=== PATIENT | female | born 1970 | race Caucasian/White ===

== ENCOUNTER 2017-08-20 15:57 | Emergency (ER) | payer OTHER ==
[2017-08-20 16:16] VITALS: BP 150/110
--- NOTE | 2017-08-20 18:02 | EDM.PDOC ---
ED HPI GENERAL MEDICAL PROBLEM - General Chief Complaint: Lower Extremity Injury/Pain Stated Complaint: RIGHT ANKLE INJURY Time Seen by Provider: 08/20/17 16:48 Source of Information: Reports: Patient History Limitations: Reports: No Limitations - History of Present Illness INITIAL COMMENTS - FREE TEXT/NARRATIVE: This lady slipped on the ice a short while ago and felt a loud pop in her right ankle. She is unable to bear any weight but her daughter had a Cam Walker type boot and she she put that on this for protection - Related Data Allergies Allergy/AdvReac Type Severity Reaction Status Date / Time amoxicillin Allergy Rash Verified 08/20/17 16:16 erythromycin base Allergy Rash Verified 08/20/17 16:16 Penicillins Allergy Difficulty Verified 08/20/17 16:16 Breathing Sulfa (Sulfonamide Allergy Rash Verified 08/20/17 16:16 Antibiotics) Home Meds: Home Meds Hydrochlorothiazide 25 mg PO DAILY 01/28/16 [History] amLODIPine [Norvasc] 5 mg PO DAILY 11/09/16 [History] Past Medical History HEENT History: Reports: Allergic Rhinitis, Impaired Vision, Otitis Media Cardiovascular History: Reports: Hypertension Respiratory History: Reports: Bronchitis, Recurrent Gastrointestinal History: Reports: Gastritis, GERD 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: Polycystic Ovaries, , Spontaneous Musculoskeletal History: Reports: None Psychiatric History: Reports: Anxiety Endocrine/Metabolic History: Reports: Obesity/BMI 30+ Dermatologic History: Reports: Other (See Below) Other Dermatologic History: rash-chronic - Infectious Disease History Infectious Disease History: Reports: Chicken Pox, Mononucleosis - Past Surgical History Head Surgeries/Procedures: Reports: None HEENT Surgical History: Reports: Myringotomy w Tube(s), Oral Surgery Cardiovascular Surgical History: Reports: None GI Surgical History: Reports: None, EGD Female Surgical History: Reports: Cervical Cryotherapy, Tubal Ligation Endocrine Surgical History: Reports: None Musculoskeletal Surgical History: Reports: None Dermatological Surgical History: Reports: Other (See Below) Social & Family History - Family History Family Medical History: Noncontributory - Tobacco Use Smoking Status *Q: Never Smoker Second Hand Smoke Exposure: No - Recreational Drug Use Recreational Drug Use: No Review of Systems - Review of Systems Review Of Systems: ROS reveals no pertinent complaints other than HPI. ED EXAM, GENERAL - Physical Exam Exam: See Below Exam Limited By: No Limitations General Appearance: Alert, WD/WN, No Apparent Distress (This lady looks comfortable doesn't seem to be in much pain) Peripheral Pulses: 2+: Posterior Tibial (R), Dorsalis Pedis (R) Extremities: Other (There seems to be some mild tenderness to the medial malleolus and some tenderness just proximal to the lateral malleolus. There may be some mild swelling over the ankle line. Neurovascular tendon all intact.) Course - Vital Signs Last Recorded V/S: Last Vital Signs Temp 36.8 C 08/20/17 16:14 Pulse 101 H 08/20/17 16:14 Resp 16 08/20/17 16:14 BP 150/110 H 08/20/17 16:14 Pulse Ox 97 08/20/17 16:14 - Orders/Labs/Meds Orders: Active Orders 24 hr Category Date Time Status Ankle Min 3V Rt [CR] Stat Exams 08/20/17 16:55 Taken - Radiology Interpretation Free Text/Narrative:: X-ray shows what appears to be a trimalleolar fracture of the right ankle. - Re-Assessments/Exams Free Text/Narrative Re-Assessment/Exam: 08/20/17 17:59 This lady is already wearing a walking boot which I think fits her well and will give adequate immobilization as long she is nonweightbearing. She is being fitted with crutches presently 12 she has some leftover Dilaudid at home which she will take she'll follow-up with Dr. lA in a couple of days. Departure - Departure Time of Disposition: 18:01 Disposition: Home, Self-Care 01 Condition: Fair Clinical Impression: Trimalleolar fracture of ankle, closed - Discharge Information Referrals: PCP,None [Primary Care Provider] - Additional Instructions: Keep your ankle and foot elevated as much as you can. Wear the boot for protection but you should not attempt to bear any weight. Use crutches instead. You should see Dr. Al the orthopedic surgeon early this coming week.. Use your own Dilaudid as needed and remember this causes sedation. - My Orders Last 24 Hours: My Active Orders 08/20/17 16:55 Ankle Min 3V Rt [CR] Stat - Assessment/Plan Last 24 Hours: My Active Orders 08/20/17 16:55 Ankle Min 3V Rt [CR] Stat
--- NOTE | 2017-08-21 10:46 | CR ---
Ankle Min 3V Rt INDICATION: trauma COMPARISON: None FINDINGS: 3 views. Fracture distal fibula with mild lateral angulation of the distal fracture frag ment. Mildly displaced medial malleolar fracture. Mortise disruption.
== END 2017-08-20 18:41 | disposition home or self-care (01) ==
LOC: JP.ED 15:57
DX: S82.851A Displaced trimalleolar fracture of right lower leg, initial encounter for closed fracture (principal); I10 Essential (primary) hypertension; K21.9 Gastro-esophageal reflux disease without esophagitis; W00.0XXA Fall on same level due to ice and snow, initial encounter; Z88.0 Allergy status to penicillin; Z88.1 Allergy status to other antibiotic agents; Z88.2 Allergy status to sulfonamides; Z79.899 Other long term (current) drug therapy
CPT/HCPCS: 73610-26-RT; 73610-RT; 99284

== ENCOUNTER 2017-08-30 09:05 | Day surgery (SDC) | payer OTHER ==
[~2017-08-30 09:05] MED LIST: Acetaminophen 500 MG Tab PO ONE; Bupivacaine 0.5% 30 ML SDV ONE; Gabapentin 300 MG Cap PO ONE; Gentamicin 40 MG/ML 2 ML Vial ONE; Ketamine 500 MG/5 ML MDV IV SCH; Lactated Ringers 1,000 ML IV SCH; Povidone-Iodine 10% Soln 118.25 ML Bottle ONE; Ropivacaine 49.25 ML, Ketorolac 30 MG, EPINEPHrine 0.5 MG, cloNIDine 80 MCG, Sodium Chl... INJECT ONE; Tranexamic Acid 1,000 MG in Sodium Chloride 0.9% 50 ML IV SCH; ceFAZolin 2 GM in Premix Bag 1 BAG IV ONE
[2017-08-30] MEDS ORDERED: Lactated Ringers 1,000 ML IV SCH (09:30)
[2017-08-30] MEDS ORDERED: Acetaminophen 500 MG Tab PO ONE (09:30)
[2017-08-30] MEDS ORDERED: Gabapentin 300 MG Cap PO ONE (09:30)
[2017-08-30] MEDS ORDERED: Rocuronium 50 MG/5 ML Vial ONE (09:52)
[2017-08-30] MEDS ORDERED: fentaNYL 250 MCG/5 ML SDV ONE (09:52)
[2017-08-30] MEDS ORDERED: Propofol 200 MG/20 ML SDV ONE (09:52)
[2017-08-30] MEDS ORDERED: Succinylcholine 200 MG/10 ML MDV ONE (09:52)
[2017-08-30] MEDS ORDERED: Midazolam 1 MG/ML 2 ML SDV ONE (09:52)
[2017-08-30] MEDS ORDERED: Dexamethasone 4 MG/ML SDV ONE (09:52)
[2017-08-30] MEDS ORDERED: Ondansetron 4 MG/2 ML SDV ONE (09:52)
[2017-08-30] MEDS ORDERED: ceFAZolin 2 GM in Premix Bag 1 BAG IV ONE (10:00)
[2017-08-30] MEDS ORDERED: Ketamine 500 MG/5 ML MDV IV SCH (10:45)
[2017-08-30] MEDS: Tranexamic Acid 1,000 MG in Sodium Chloride 0.9% 50 ML IV SCH ×2 (11:10→13:41)
[2017-08-30] MEDS ORDERED: fentaNYL 100 MCG/2 ML SDV ONE (12:16)
[2017-08-30] MEDS ORDERED: hydrOXYzine HCl 100 MG/2 ML SDV IM ONE (12:33)
[2017-08-30] MEDS ORDERED: fentaNYL 100 MCG/2 ML SDV IVPUSH ONE (12:46)
[2017-08-30] MEDS ORDERED: Acetaminophen/oxyCODONE 325-5 MG Tab PO ONE (13:45)
[2017-08-30] MEDS ORDERED: Ketorolac 60 MG/2 ML SDV IM ONE (13:47)
[2017-08-30 14:52] VITALS: BP 166/96
--- NOTE | 2017-08-31 07:50 | OR ---
DATE OF PROCEDURE: 08/30/2017 PREOPERATIVE DIAGNOSIS: Right ankle trimalleolar fracture, closed. POSTOPERATIVE DIAGNOSIS: Right ankle trimalleolar fracture, closed. PROCEDURE: Open reduction and internal fixation of right trimalleolar fracture. SURGEON: Gil Al DO MANAGER PROFESSIONAL DEVELOPMENT: ANGELA Summers ANESTHESIA: General endotracheal intubation. FLUID: Lactated Ringer solution. ESTIMATED BLOOD LOSS: 25 mL. COMPLICATIONS: None. SPECIMEN: None. DISCHARGE DISPOSITION: Stable to PACU. INDICATIONS FOR THE PROCEDURE: The patient was seen preoperatively in the clinic. She had been seen in the emergency department, where she was found to have a closed trimalleolar ankle fracture. She was placed into a walker boot and told to followup. She was seen in the clinic. We did wait a few days for the swelling to decrease. I advised her to elevate the extremity and ice it as needed. Preoperative imaging confirmed the above-mentioned diagnosis. Risks and benefits of the procedure were explained to the patient. Informed consent was obtained. DETAILS OF PROCEDURE: The patient was seen preoperatively by myself and the Anesthesia staff at the preop holding area where the operative site was marked. She was brought to the operative suite by Anesthesia staff, where general anesthesia was administered. All extremities were found to be well padded. A bump was placed under the right hip. A well- padded tourniquet was placed on the right thigh. The right lower extremity was then prepped and draped in a sterile manner. Time-out was called identifying the correct patient, correct procedure, the correct site, and that antibiotics had begun within appropriate period of time. The right lower extremity was exsanguinated. Tourniquet was raised to 300 mmHg for 46 minutes and let down after closure. An incision was made over the distal tip of the lateral distal fibula, proximally approximately 10 cm. I then used an elevator to go through the fascia toward the bone and then bluntly elevated the fascia over the bone. I then exposed more of the bone. The fracture site was on the medial side of the distal fibula, otherwise alignment was good. I then placed an anatomic distal fibular plate, placing the locking screws first and then I placed my proximal cortical screws. These appear to be in good position on fluoroscopy. I then focused on the medial malleolus, as my kindergarten assistant irrigated and closed the lateral segment with 3-0 Vicryl sutures and 3-0 nylon horizontal mattress sutures. I made an incision over the medial malleolus extending proximally approximately 6 cm and went down to the bone with Bovie electrocautery, as well as using a Shushan. I then used a 3-hole hook plate and then contoured this into appropriate position. I then attached a locking guide and then, using the locking guide, used that to dig the teeth of the hook plate into the distal medial malleolus. This worked very nicely. I then used the compression holes to compress the medial malleolar fragments together. This provided good compression. I then copiously irrigated with saline and then closed subcutaneous tissues with 2-0 nylon, followed by 3-0 Vicryl in a horizontal mattress manner, followed by a sterile dressing. The patient was then placed into a walker boot and taken to the PACU in stable condition. Physician kindergarten assistant, Niki Carolina NP, played an essential role in assisting in this case, helping to position the patient, retract structures as needed, as well as suturing and cutting sutures as indicated. Her presence improved patient's safety and decreased operative time. Gil Al DO /[id number]
== END 2017-08-30 15:15 | disposition home or self-care (01) ==
LOC: JP.SDS 09:05
PROVIDERS: ATTEND Orthopaedic Surgery
DX: S82.851A Displaced trimalleolar fracture of right lower leg, initial encounter for closed fracture (principal); I10 Essential (primary) hypertension; K21.9 Gastro-esophageal reflux disease without esophagitis; F41.9 Anxiety disorder, unspecified; E66.9 Obesity, unspecified; Z88.1 Allergy status to other antibiotic agents; Z88.0 Allergy status to penicillin; Z88.2 Allergy status to sulfonamides; Z79.899 Other long term (current) drug therapy; Z68.30 Body mass index [BMI] 30.0-30.9, adult; Z98.51 Tubal ligation status; Z98.890 Other specified postprocedural states; W00.0XXA Fall on same level due to ice and snow, initial encounter; Y93.29 Activity, other involving ice and snow
CPT/HCPCS: 27822; 81025; A9270; J0330; J1100; J1885; J2250; J2405; J2704; J3010; J3410; J7050; J7120; C1713; J1580; S0077